=== PATIENT | male | born 1945 | race Caucasian/White ===

== ENCOUNTER 2022-02-12 14:30 | Emergency (ER) | payer OTHER ==
[2022-02-12 15:09] VITALS: TEMP 97.6; BMI 22.8
[2022-02-12] MEDS ORDERED: SODIUM CHLORIDE 0.9% 500 ML INFUS.BAG IV ONE ×2 (15:51→17:06)
[2022-02-12 16:40] LABS: BASO % 0.5 % (0-2.0); EOS % 0.4 % (0-4.5); HEMATOCRIT 35.5 % (35.4-49); HEMOGLOBIN 12.1 GM/dL (11.7-16.9); LYMPH % 14.8 % (8-40); MCH 31.4 pg (25.7-33.7); MCHC 34.1 g/dl (32.0-35.9); MEAN CELL VOLUME 91.9 fl (80-96); MEAN PLT VOLUME 9.6 fl (7.5-11.1); MONO % 10.6 % (3.8-10.2); NEUT % 73.7 % (42.8-82.8); PLATELET COUNT 217 10^3/uL (134-434); RBC 3.86 M/mm3 (4.00-5.60); RDW 14.4 % (11.9-15.9); WHITE BLOOD COUNT 5.5 K/mm3 (4.0-10.0)
[2022-02-12 16:46] LABS: INR 1.01 (0.83-1.09); PROTHROMBIN TIME (PATIENT) 11.6 SEC (9.7-13.0)
[2022-02-12 16:48] LABS: ACTIVATED PTT 35.3 SECONDS (25.2-36.5)
[2022-02-12 16:57] LABS: ALBUMIN 3.7 g/dl (3.4-5.0); BLOOD UREA NITROGEN 23.3 mg/dL (7-18); CALCIUM 9.3 mg/dL (8.5-10.1); MAGNESIUM 1.9 mg/dL (1.8-2.4)
[2022-02-12 17:00] LABS: CREATININE 0.8 mg/dL (0.55-1.3)
[2022-02-12 17:02] LABS: BILIRUBIN,TOTAL 0.3 mg/dL (0.2-1); TOT PROT 6.3 g/dl (6.4-8.2)
[2022-02-12] MEDS ORDERED: DIPHTH,PERTUSS(ACELL),TET 0.5 ML DISP.SYRIN IM ONE ×2 (17:23→17:35)
[2022-02-12 17:29] VITALS: BP 111/59; PULSE 68
[2022-02-12 18:54] LABS: PH,URINE 5.5 (5.0-8.0); URINE APPEARANCE CLEAR; URINE BILIRUBIN NEGATIVE (NEGATIVE); URINE COLOR YELLOW; URINE GLUCOSE (UA) NEGATIVE (NEGATIVE); URINE KETONE NEGATIVE (NEGATIVE); URINE LEUK ESTERASE NEGATIVE (NEGATIVE); URINE NITRITE NEGATIVE (NEGATIVE); URINE PROTEIN NEGATIVE (NEGATIVE)
== END 2022-02-12 20:10 | disposition home or self-care (01) ==
LOC: JER 14:30
PROC: 3E0234Z Introduction of Serum, Toxoid and Vaccine into Muscle, Percutaneous Approach (ICD-10-PCS; principal; 2022-02-12)
DX: S51.011A Laceration without foreign body of right elbow, initial encounter (principal); S50.01XA Contusion of right elbow, initial encounter; W07.XXXA Fall from chair, initial encounter
CPT/HCPCS: 36415; 71045-TC-FY; 72170-TC-FY; 73070-TC-RT-FY; 80053; 81003; 83735; 84484; 85025; 85610; 85730; 87086; 90471; 90715; 93005; 93010; 99284-25

== ENCOUNTER 2022-03-30 10:09 | Emergency (ER) | payer OTHER ==
[2022-03-30 10:54] VITALS: BP 116/68; PULSE 63; RESP 16; TEMP 98.4; BMI 22.3
== END 2022-03-30 11:22 | disposition home or self-care (01) ==
LOC: FER 10:09
DX: S20.221A Contusion of right back wall of thorax, initial encounter (principal); W01.0XXA Fall on same level from slipping, tripping and stumbling without subsequent striking against object, initial encounter
CPT/HCPCS: 72100-TC-FY; 99283-25